=== PATIENT | female | born 1995 | race Caucasian/White ===

== ENCOUNTER 2017-06-28 05:11 | Emergency (ER) | payer BC ==
[~2017-06-28] VITALS: Ht 172.7 cm; Wt 79.8 kg
[~2017-06-28 05:11] MED LIST: VITAFOL-OB+DHA1 EACH PO
[2017-06-28] MEDS ORDERED: GENTAK5 ML OP (05:34)
[2017-06-28] MEDS ORDERED: NUVARING VAGIN1 EACH VAGINAL (05:35)
[2017-06-28] MEDS ORDERED: IBUPROFEN600 MG PO (05:35)
[2017-06-28] MEDS ORDERED: ACETAMINOPHEN500 MG PO (05:36)
[2017-06-28] MEDS ORDERED: NORCO 5-325 TA1 EACH PO (07:13)
== END 2017-06-28 07:34 | disposition home or self-care (01) ==
LOC: ED 05:11
DX: B34.9 Viral infection, unspecified (principal); Z98.890 Other specified postprocedural states; Z91.041 Radiographic dye allergy status; Z79.899 Other long term (current) drug therapy
CPT/HCPCS: 80053; 81001; 83605; 85025; 87040; 96361; 96374; 96375; 99284; J1170; J1885; J2405; J7030